=== PATIENT | female | born 1970 | race African-American/Black ===

== ENCOUNTER 2016-06-15 08:53 | Outpatient (CLI) | payer BC ==
--- NOTE | 2016-06-15 09:50 | Mammography Report ---
BILATERAL MAMMOGRAM: FINDINGS: The breast tissue is heterogeneously dense, which could obscure detection of small masses (approximately 50%-75% glandular). No mass, distortion, suspicious calcification, or skin change is seen. The findings are unchanged compared to her prior study in February 2015. CAD was utilized. IMPRESSION: Negative mammogram. There is no mammographic evidence of malignancy. RECOMMENDATION: Follow-up per ACS guidelines. BI-RADS CATEGORY: 1 = Negative ACR BI-RADS MAMMOGRAPHIC CODES: 0 = Needs additional imaging evaluation; 1 = Negative; 2 = Benign; 3 = Probably benign; 4 = Suspicious; 5 = Malignant; 6 = Known biopsy-proven malignancy COMMENT: 1. Dense breast tissue, i.e., adenosis, fibrocystic changes, etc., may obscure an underlying neoplasm. 2. Approximately 10% of cancers are not detected with mammography. 3. A negative mammography report should not delay biopsy if a clinically suspicious mass is present. COMMENT: Patient follow-up letters are generated in K121.
== END 2016-06-15 08:54 | disposition home or self-care (01) ==
LOC: SPVWC 08:53
PROVIDERS: ATTEND Internal Medicine
DX: Z12.31 Encounter for screening mammogram for malignant neoplasm of breast (principal)
CPT/HCPCS: 77067; G0202

== ENCOUNTER 2019-03-31 08:35 | Outpatient (CLI) | payer BC ==
--- NOTE | 2019-03-31 11:42 | Mammography Report ---
DIGITAL SCREENING MAMMOGRAM WITH CAD, 03/31/2019 INDICATION: Routine screening mammography. TECHNIQUE: Digital bilateral 2D mammography was obtained in the craniocaudal and mediolateral obliq ue projections. This examination was interpreted with the benefit of Computer-Aided Detection analysi s. COMPARISON: 06/15/2016 FINDINGS: Breast Density: The breasts are heterogeneously dense, which may obscure small masses. A left asymmetry on the CC view requires additional imaging. No architectural distortion or suspiciou s calcifications of the left breast. There is no evidence of dominant mass, suspicious calcifications or architectural distortion in the right breast. IMPRESSION: Left asymmetry requiring additional imaging. Recommend recall for left CC spot compressio n view and left breast ultrasound if needed. Follow up recommendation: Special View: Spot Category 0: Incomplete. Needs additional imaging evaluation and/or prior mammograms for comparison. A "normal" or negative report should not discourage follow up or biopsy of a clinically significant f inding. A written summary of these findings will be mailed to the patient. The patient will be entered into a mammography reporting system which will generate a reminder letter for the patient's next appointmen t at the appropriate interval. The [employer] recommends yearly mammograms starting at age 40 and continuing as l dominik as a woman is in good health. Breast MRI is recommended for women with an approximate 20-25% or greater lifetime risk of breast cancer, including women with a strong family history of breast or ova latoya cancer or who have been treated for Hodgkin's disease. Signer Name: Vini Mckeon MD Signed: 03/31/2019 11:37 AM Workstation Name: [id number]
== END 2019-03-31 08:36 | disposition home or self-care (01) ==
LOC: SPVWC 08:35
PROVIDERS: ATTEND Internal Medicine
DX: Z12.31 Encounter for screening mammogram for malignant neoplasm of breast (principal)
CPT/HCPCS: 77067

== ENCOUNTER 2019-04-23 07:56 | Outpatient (CLI) | payer BC ==
--- NOTE | 2019-04-23 08:41 | Mammography Report ---
DIGITAL DIAGNOSTIC MAMMOGRAM WITH CAD, 04/23/2019 INDICATION: Recall for asymmetry. ABNORMAL MAMMOGRAM TECHNIQUE: Digital left mammographic imaging was performed. This examination was interpreted with the benefit of Computer-aided Detection analysis. COMPARISON: 03/31/2019 FINDINGS: Breast Density: The breast is heterogeneously dense, which may obscure small masses. Lateral medial and spot magnification CC views were performed and are negative. Satisfactory effaceme nt of asymmetry on the CC view. IMPRESSION: No mammographic evidence of malignancy. Follow up recommendation: Routine yearly BI-RADS Category 1: Negative. A "normal" or negative report should not discourage follow up or biopsy of a clinically significant f inding. A written summary of these findings will be mailed to the patient. The patient will be entered into a mammography reporting system which will generate a reminder letter for the patient's next appointmen t at the appropriate interval. According to the [employer], yearly mammograms are recommended starting at age 40 and continuing as long as a woman is in good health. Breast MRI is recommended for women with an allie roximately 20-25% or greater lifetime risk of breast cancer, including women with a strong family his tory of breast or ovarian cancer and women who have been treated for Hodgkin's disease. Signer Name: Vini Mckeon MD Signed: 04/23/2019 8:37 AM Workstation Name: [id number]
--- NOTE | 2019-04-23 12:12 | Ultrasound Report ---
COMPLETE LEFT BREAST ULTRASOUND HISTORY: Left breast pain. Abnormal screening mammogram but a same day left diagnostic mammogram is n ormal. COMPARISON: 04/23/2019 and 03/31/2019 mammograms FINDINGS: Complete sonographic evaluation including imaging of the four quadrants and subareolar aspe ct of the right breast demonstrates normal structures with no mass, cyst or suspicious shadowing. IMPRESSION: Normal left breast ultrasound. If the clinical examination remains stable, the patient should continue an annual mammographic evalua tion schedule. BIRADS 1: Negative. Signer Name: Vini Mckeon MD Signed: 04/23/2019 12:07 PM Workstation Name: [id number]
== END 2019-04-23 07:57 | disposition home or self-care (01) ==
LOC: SPVWC 07:56
PROVIDERS: ATTEND Internal Medicine
DX: R92.8 Other abnormal and inconclusive findings on diagnostic imaging of breast (principal)

== ENCOUNTER 2020-05-13 08:09 | Outpatient (CLI) | payer BC ==
--- NOTE | 2020-05-13 09:10 | Mammography Report ---
DIGITAL SCREENING MAMMOGRAM WITH CAD, 05/13/2020 CLINICAL INFORMATION / INDICATION: Routine screening mammography. SCREENING MAMMO TECHNIQUE: Digital bilateral 2D mammography was obtained in the craniocaudal and mediolateral obliqu e projections. This examination was interpreted with the benefit of Computer-Aided Detection analysis . COMPARISON: 07/02/2013 through 03/31/2019. FINDINGS: Breast Density: The breasts are extremely dense, which lowers the sensitivity of mammography. No dominant mass, suspicious calcifications, or architectural distortion in either breast. IMPRESSION: No mammographic evidence of malignancy. Follow up recommendation: Routine yearly BI-RADS Category 1: Negative. A "normal" or negative report should not discourage follow up or biopsy of a clinically significant f inding. A written summary of these findings will be mailed to the patient. The patient will be entered into a mammography reporting system which will generate a reminder letter for the patient's next appointmen t at the appropriate interval. The [employer] recommends yearly mammograms starting at age 40 and continuing as l dominik as a woman is in good health. Breast MRI is recommended for women with an approximate 20-25% or greater lifetime risk of breast cancer, including women with a strong family history of breast or ova latoya cancer or who have been treated for Hodgkin's disease. Signer Name: Vidal Kelly MD Signed: 05/13/2020 9:06 AM Workstation Name: [id number]
== END 2020-05-13 08:10 | disposition home or self-care (01) ==
LOC: SPVWC 08:09
PROVIDERS: ATTEND Internal Medicine
DX: Z12.31 Encounter for screening mammogram for malignant neoplasm of breast (principal)
CPT/HCPCS: 77067

== ENCOUNTER 2021-10-04 12:59 | Outpatient (CLI) | payer BC ==
--- NOTE | 2021-10-06 15:45 | Mammography Report ---
DIGITAL SCREENING MAMMOGRAM WITH CAD, 10/04/2021 CLINICAL INFORMATION / INDICATION: Routine screening mammography. TECHNIQUE: Digital bilateral 2D mammography was obtained in the craniocaudal and mediolateral obliqu e projections. This examination was interpreted with the benefit of Computer-Aided Detection analysis . COMPARISON: 05/13/2020, 04/23/2019, 03/31/2019 FINDINGS: Breast Density: The breasts are extremely dense, which lowers the sensitivity of mammography. No dominant mass, suspicious calcifications, or architectural distortion in either breast. There has been no significant interval change. IMPRESSION: No mammographic evidence of malignancy. Follow up recommendation: Routine yearly screening mammogram. BI-RADS Category 1: NEGATIVE A "normal" or negative report should not discourage follow up or biopsy of a clinically significant f inding. A written summary of these findings will be mailed to the patient. The patient will be entered into a mammography reporting system which will generate a reminder letter for the patient's next appointmen t at the appropriate interval. The [employer] recommends yearly mammograms starting at age 40 and continuing as l dominik as a woman is in good health. Breast MRI is recommended for women with an approximate 20-25% or greater lifetime risk of breast cancer, including women with a strong family history of breast or ova latoya cancer or who have been treated for Hodgkin's disease. Signer Name: Ezra Us MD Signed: 10/06/2021 3:40 PM Workstation Name: [id number]
== END 2021-10-04 13:00 | disposition home or self-care (01) ==
LOC: SPVWC 12:59
PROVIDERS: ATTEND Internal Medicine
DX: Z12.31 Encounter for screening mammogram for malignant neoplasm of breast (principal)
CPT/HCPCS: 77067